=== PATIENT | female | born 1955 | race African-American/Black ===

== ENCOUNTER 2018-03-09 15:20 | Emergency (ER) | payer OTHER ==
[~2018-03-09] VITALS: Ht 142.2 cm; Wt 68.0 kg
--- NOTE | ~2018-03-09 | EKG ---
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
[2018-03-09 16:35] LABS: ABSOLUTE NEUTROPHILS 7.8 thou/uL (1.4-8.2); BASOPHILS 0.8 % (0.0-2.0); EOSINOPHILS 2.2 % (0.0-3.0); HEMATOCRIT 35.6 % (37.0-47.0); LYMPHOCYTES 16.3 % (24.0-44.0); MCH 23.3 pg (26.0-34.0); MCHC 33.8 g/dL (28.0-37.0); MCV 68.9 fL (80.0-100.0); MONOCYTES 7.8 % (1.0-8.0); PLATELET COUNT 286 thou/uL (150-400); POLYS 72.9 % (36.0-66.0); RBC 5.16 mil/uL (4.20-5.00); RDW 14.7 % (10.5-14.5); WBC 10.7 thou/uL (4.0-11.0)
[2018-03-09 16:43] LABS: ANION GAP 11 mmol/L (7-16); BUN 8 mg/dL (7-18); CALCIUM 9.5 mg/dL (8.5-10.1); CHLORIDE 101 mmol/L (98-107); CO2 26 mmol/L (21-32); CREATININE 0.8 mg/dL (0.6-1.0); GLUCOSE 186 mg/dL (74-106); POTASSIUM 3.5 mmol/L (3.5-5.1); SODIUM 138 mmol/L (136-145)
[2018-03-09 16:51] LABS: ALBUMIN 3.9 g/dL (3.4-5.0); SGOT 22 U/L (15-37); SGPT 20 U/L (30-65); TOTAL BILIRUBIN 0.3 mg/dL (<0.1-1.0); TOTAL PROTEIN 7.7 g/dL (6.4-8.2); TROPONIN-I < 0.04 ng/mL (<0.06)
[2018-03-09] MEDS ORDERED: PROMETHAZINE/C118 ML PO (17:20)
[2018-03-09] MEDS ORDERED: VIBRAMYCIN 100100 M2 PO (17:20)
[2018-03-09 17:48] VITALS: BP 137/87
== END 2018-03-09 17:49 | disposition home or self-care (01) ==
LOC: ER 15:20
PROVIDERS: Physician Assistant
DX: R05 Cough (principal); R51 Headache; Z87.01 Personal history of pneumonia (recurrent); F17.210 Nicotine dependence, cigarettes, uncomplicated

== ENCOUNTER 2019-10-12 13:57 | Emergency (ER) | payer OTHER ==
[~2019-10-12] VITALS: Ht 142.2 cm; Wt 59.0 kg
[~2019-10-12 13:57] MED LIST: PROMETHAZINE/C118 ML PO; VIBRAMYCIN 100100 M2 PO
[2019-10-12] MEDS ORDERED: METFORMIN HCL500 M3 PO (13:59)
[2019-10-12] MEDS ORDERED: NEURONTIN300 MG PO (14:00)
[2019-10-12] MEDS ORDERED: MICROZIDE12.5 MG PO (14:00)
[2019-10-12] MEDS ORDERED: NAPRELAN375 MG PO (14:01)
[2019-10-12] MEDS ORDERED: TRESIBA100 UNIT/1 SUBQ (14:01)
[2019-10-12] MEDS ORDERED: CLEOCIN HCL150 MG PO (15:22)
[2019-10-12] MEDS ORDERED: NORCO 5-325 TA1 EAC1 PO (15:22)
[2019-10-12 15:32] VITALS: BP 145/87
== END 2019-10-12 15:32 | disposition home or self-care (01) ==
LOC: ER 13:57
DX: K04.7 Periapical abscess without sinus (principal); I50.9 Heart failure, unspecified; F17.210 Nicotine dependence, cigarettes, uncomplicated

== ENCOUNTER 2019-11-08 13:18 | Emergency (ER) | payer OTHER ==
[~2019-11-08] VITALS: Ht 142.2 cm; Wt 59.0 kg
[~2019-11-08 13:18] MED LIST changes: +CLEOCIN HCL150 MG PO; +METFORMIN HCL500 M3 PO; +MICROZIDE12.5 MG PO; +NAPRELAN375 MG PO; +NEURONTIN300 MG PO; +NORCO 5-325 TA1 EAC1 PO; +TRESIBA100 UNIT/1 SUBQ
[2019-11-08] MEDS ORDERED: NORFLEX100 MG PO (16:13)
[2019-11-08] MEDS ORDERED: MOBIC7.5 MG PO (16:13)
[2019-11-08 16:34] VITALS: BP 129/78
== END 2019-11-08 16:34 | disposition home or self-care (01) ==
LOC: ER 13:18
DX: S29.012A Strain of muscle and tendon of back wall of thorax, initial encounter (principal); M54.2 Cervicalgia; M54.9 Dorsalgia, unspecified; I50.9 Heart failure, unspecified; F17.210 Nicotine dependence, cigarettes, uncomplicated; V89.2XXA Person injured in unspecified motor-vehicle accident, traffic, initial encounter; Y93.89 Activity, other specified; Y92.89 Other specified places as the place of occurrence of the external cause; Y99.8 Other external cause status

== ENCOUNTER 2020-06-16 09:06 | Emergency (ER) | payer OTHER ==
[~2020-06-16] VITALS: Ht 142.2 cm; Wt 63.5 kg
[~2020-06-16 09:06] MED LIST changes: +MOBIC7.5 MG PO; +NORFLEX100 MG PO
[2020-06-16] MEDS ORDERED: TRULICITY0.75 MG/0. SUBQ (09:17)
[2020-06-16 09:59] LABS: ABSOLUTE NEUTROPHILS 4.6 thou/uL (1.4-8.2); BASOPHILS 1.5 % (0.0-2.0); EOSINOPHILS 0.9 % (0.0-3.0); HEMATOCRIT 38.8 % (37.0-47.0); HEMOGLOBIN 13.3 gm/dL (12.0-15.0); LYMPHOCYTES 25.2 % (24.0-44.0); MCH 24.7 pg (26.0-34.0); MCHC 34.2 g/dL (28.0-37.0); MCV 72.4 fL (80.0-100.0); MONOCYTES 8.7 % (1.0-8.0); PLATELET COUNT 217 thou/uL (150-400); POLYS 63.7 % (36.0-66.0); RBC 5.36 mil/uL (4.20-5.00); RDW 13.7 % (10.5-14.5); WBC 7.2 thou/uL (4.0-11.0)
[2020-06-16 10:06] LABS: ANION GAP 14 mmol/L (7-16); BUN 12 mg/dL (7-18); CALCIUM 9.3 mg/dL (8.5-10.1); CHLORIDE 96 mmol/L (98-107); CO2 23 mmol/L (21-32); CREATININE 1.1 mg/dL (0.6-1.0); GLUCOSE 279 mg/dL (74-106); POTASSIUM 4.1 mmol/L (3.5-5.1); SODIUM 133 mmol/L (136-145)
[2020-06-16 10:15] LABS: TROPONIN-I <0.06 ng/mL (<0.06)
[2020-06-16 12:55] VITALS: BP 143/86
--- NOTE | 2020-06-17 09:05 | EKG ---
[facility] [place] [address] ELECTROCARDIOGRAM REPORT Name: SAMREEN WARD Room #: DEP [facility]#: [id number] Admission: 06/16/20 Attend Phys: Discharge: 06/16/20 Date of : 59 Report #: [id number] THIS REPORT FOR: cc: TERESA - Catie family physician/PCP TERESA - Catie family physician/PCP Sukhdeep Dwyer MD [facility] THIS REPORT FOR: //name// [facility] ED Test Date: 2020-06-16 Test Time: 10:13:32 Pat Name: SAMREEN WARD Department: Room: Gender: F Drum Cleaner: [facility] : 1955 Requested By: Rajeev Townsend Order Number: [id number] MD: Sukhdeep Dwyer Measurements Intervals [place] Rate: 96 P: 44 RI: 129 QRS: -1 QRSD: 89 T: 34 QT: 386 QTc: 488 Interpretive Statements Sinus rhythm Borderline prolonged QT interval Compared to ECG 03/09/2018 15:50:38 No significant changes Electronically Signed On 06-17-2020 9:04:59 CDT by Sukhdeep Dwyer [email or web address] <ELECTRONICALLY SIGNED> By: Sukhdeep Dwyer MD, FACC 06/17/20 0904 1013 1013 Sukhdeep Dwyer MD, [facility] /EPI
== END 2020-06-16 12:55 | disposition home or self-care (01) ==
LOC: ER 09:06
PROVIDERS: Emergency Medicine
DX: R10.32 Left lower quadrant pain (principal); M25.552 Pain in left hip; F17.210 Nicotine dependence, cigarettes, uncomplicated; I50.9 Heart failure, unspecified; Z79.4 Long term (current) use of insulin; Z79.899 Other long term (current) drug therapy